=== PATIENT | female | born 1995 ===

== ENCOUNTER 2017-09-19 12:53 | Emergency (ER) | payer OTHER ==
[~2017-09-19] VITALS: Ht 170.2 cm; Wt 53.5 kg
[~2017-09-19 12:53] MED LIST: AMOXICILLIN500 M1 PO; BIAXIN500 MG PO; ESOMEPRAZOLE ST40 MG PO
== END 2017-09-19 18:54 | disposition home or self-care (01) ==
LOC: ER 12:53
DX: K52.9 Noninfective gastroenteritis and colitis, unspecified (principal); E86.0 Dehydration

== ENCOUNTER 2018-01-20 07:02 | Outpatient (CLI) | payer OTHER | END 2018-01-20 08:16 | disposition home or self-care (01) | LOC: LAB 07:02 | DX: Z00.01 Encounter for general adult medical examination with abnormal findings (principal); N39.0 Urinary tract infection, site not specified; R50.9 Fever, unspecified; E03.9 Hypothyroidism, unspecified; E08.8 Diabetes mellitus due to underlying condition with unspecified complications ==

== ENCOUNTER 2018-03-20 07:39 | Outpatient (CLI) | payer OTHER | END 2018-03-20 07:46 | disposition home or self-care (01) | LOC: LAB 07:39 | DX: R10.13 Epigastric pain (principal); R21 Rash and other nonspecific skin eruption ==

== ENCOUNTER 2018-03-20 08:04 | Outpatient (CLI) | payer OTHER | END 2018-03-20 08:06 | disposition home or self-care (01) | LOC: SONOGRAMA 08:04 | DX: R10.13 Epigastric pain (principal); R21 Rash and other nonspecific skin eruption ==

== ENCOUNTER → 2018-06-15 07:30 | Outpatient (CLI) | payer OTHER | END | disposition home or self-care (01) | LOC: LAB 07:30 | DX: I10 Essential (primary) hypertension (principal); R76.0 Raised antibody titer; R04.0 Epistaxis; M32.8 Other forms of systemic lupus erythematosus; E11.00 Type 2 diabetes mellitus with hyperosmolarity without nonketotic hyperglycemic-hyperosmolar coma (NKHHC); M06.4 Inflammatory polyarthropathy ==

== ENCOUNTER → 2018-07-15 13:16 | Outpatient (CLI) | payer OTHER | END | disposition home or self-care (01) | LOC: LAB 13:16 | DX: B34.9 Viral infection, unspecified (principal); B01.89 Other varicella complications ==

== ENCOUNTER 2018-12-15 12:06 | Outpatient (CLI) | payer OTHER | END 2018-12-15 12:14 | disposition home or self-care (01) | LOC: LAB 12:06 | DX: R30.0 Dysuria (principal); N39.0 Urinary tract infection, site not specified; B96.29 Other Escherichia coli [E. coli] as the cause of diseases classified elsewhere ==

== ENCOUNTER 2019-01-01 07:28 | Outpatient (CLI) | payer OTHER | END 2019-01-01 08:33 | disposition home or self-care (01) | LOC: LAB 07:28 | DX: N39.0 Urinary tract infection, site not specified (principal); R06.02 Shortness of breath; R45.0 Nervousness; Z13.89 Encounter for screening for other disorder; Z13.220 Encounter for screening for lipoid disorders; Z13.1 Encounter for screening for diabetes mellitus; Z11.3 Encounter for screening for infections with a predominantly sexual mode of transmission; Z11.4 Encounter for screening for human immunodeficiency virus [HIV] ==

== ENCOUNTER 2019-10-18 06:55 | Outpatient (CLI) | payer OTHER | END 2019-10-18 07:00 | disposition home or self-care (01) | LOC: LAB 06:55 | DX: B35.8 Other dermatophytoses (principal); R07.89 Other chest pain; R51 Headache; E07.89 Other specified disorders of thyroid; Z13.89 Encounter for screening for other disorder; Z13.220 Encounter for screening for lipoid disorders; Z11.3 Encounter for screening for infections with a predominantly sexual mode of transmission; R21 Rash and other nonspecific skin eruption ==

== ENCOUNTER 2019-11-20 09:02 | Outpatient (CLI) | payer OTHER | END 2019-11-22 12:13 | disposition home or self-care (01) | LOC: RAD 09:02 | DX: R21 Rash and other nonspecific skin eruption (principal); M79.672 Pain in left foot; E78.49 Other hyperlipidemia; R60.0 Localized edema; M35.8 Other specified systemic involvement of connective tissue; R05 Cough ==

== ENCOUNTER 2020-03-21 08:06 | Outpatient (CLI) | payer OTHER | END 2020-03-21 08:14 | disposition home or self-care (01) | LOC: LAB 08:06 | DX: M15.0 Primary generalized (osteo)arthritis (principal); M30.0 Polyarteritis nodosa; M32.0 Drug-induced systemic lupus erythematosus ==